=== PATIENT | female | born 1975 | race African-American/Black ===

== ENCOUNTER → 2024-10-09 | Day surgery (SDC) | payer OTHER ==
[~2024-10-09] MED LIST: ALBUTEROL0.63 MG/3 NEB; AMLODIPINE BESY10 MG PO; ATORVASTATIN CA20 MG PO; BREYNA 80-4.510.3 GM INH; BUPROPION HCL100 MG PO; BUPROPION XL150 MG PO; ESCITALOPRAM OX10 MG; LEVOTHYROXINE112 MCG PO; LEVOTHYROXINE88 MCG PO; LEXAPRO10 MG PO; LEXAPRO20 MG PO; MIDAZOLAM HCL 2 MG/2 ML VIAL ONE; POLYETHYLENE GL17 GM PO; PROPOFOL IV EMULSION 10 MG/ML 20 ML VIAL ONE; SYMBICORT 16010.2 GM INH; VITAMIN D250 MC1 PO; VITAMIN D3 PO; diclofenac PO
[2024-10-09] MEDS: LACTATED RINGER'S 1,000 ML ONE (07:39)
[2024-10-09 10:18] VITALS: TEMP 98.2
[2024-10-09 10:45] VITALS: BP 144/78; PULSE 86; RESP 15; O2SAT 98
== END | disposition home or self-care (01) ==
LOC: MERGE 07:03 → OR 07:03
PROVIDERS: ATTEND Internal Medicine Gastroenterology
DX: D12.3 Benign neoplasm of transverse colon (principal); K59.00 Constipation, unspecified; K64.8 Other hemorrhoids; I10 Essential (primary) hypertension; E78.5 Hyperlipidemia, unspecified; I49.3 Ventricular premature depolarization; R01.1 Cardiac murmur, unspecified; E03.9 Hypothyroidism, unspecified; J45.909 Unspecified asthma, uncomplicated; F41.9 Anxiety disorder, unspecified; Z01.810 Encounter for preprocedural cardiovascular examination; Z79.899 Other long term (current) drug therapy; Z68.41 Body mass index [BMI] 40.0-44.9, adult
CPT/HCPCS: 45380; 93005; J2250; J2704; J7121; 45384